=== PATIENT | female | born 1995 | race African-American/Black ===

== ENCOUNTER 2020-06-16 11:16 | Emergency (ER) | payer SELFPAY ==
[2020-06-16] MEDS ORDERED: HALOPERIDOL LACTATE INJ 5 MG/1 ML VIAL IV ONE (11:55)
[2020-06-16 12:00] LABS: APPEARANCE,URINE SLIGHTLY-CLOUDY; BILIRUBIN,URINE NEGATIVE (NEGATIVE); COLOR,URINE YELLOW; GLUCOSE, URINE NEGATIVE (NEGATIVE); KETONES,URINE NEGATIVE (NEGATIVE); LEUKOCYTE ESTERASE,URINE NEGATIVE (NEGATIVE); NITRITE,URINE NEGATIVE (NEGATIVE); PROTEIN,URINE NEGATIVE (NEGATIVE); URINE SPECIFIC GRAVITY 1.012; UROBILINOGEN,URINE NEGATIVE mg/dL (<2.0)
[2020-06-16 12:05] VITALS: BP 146/111
--- NOTE | 2020-06-16 12:05 | ER Document Report ---
ED General - General Stated Complaint: ALTERED MENTAL STATUS Time Seen by Provider: 06/16/20 11:32 - HPI Notes: Chief complaint: Altered mental status History of present illness: 25-year-old female [place] and what appear to be an acute confusional state. Bystanders called EMS. They found the patient to be disoriented and transported here for further evaluation. Patient became moderately agitated while being transported and I gave her Versed 2.5 mg IM. Subsequently we have obtained a telephone number for her mother and I have spoken with her to obtain supplemental information. The patient remains moderately confused and is not able to relate her own history effectively at this time. I spoke with the patient's mother Mary Wolf in [facility] at . She has power of personal injury attorney for the patient and notes that her daughter has a history of schizoaffective disorder. She is previously been treated on the inpatient psychiatry unit at [facility] in [facility]. The patient normally lives with her mother in [place]. Mother reports that the patient was previously taking multiple medications including Seroquel, Remeron and trazodone. The patient has been noncompliant with these medications since January of this year. The patient had come [place] the beach [place] vacation [place] with her cousins. Apparently she wandered away from the group and this is when bystanders found her in a disoriented state on the beach. Mother reports that the patient rarely consumes alcohol and does not smoke or use any street drugs. She reportedly has no other significant medical problems. - Related Data Allergies/Adverse Reactions: No Known Allergies Allergy (Unverified 06/16/20 13:30) Past Medical History - General Information source: Parent, Emergency Med Personnel Cannot obtain history due to: Altered mental status - Social History Smoking Status: Never Smoker Family History: Reviewed & Not Pertinent Review of Systems - Review of Systems -: Yes ROS unobtainable due to patient's medical condition Physical Exam - Vital signs Vitals: Temp Pulse Resp BP Pulse Ox 98.4 F 103 H 17 146/111 H 100 06/16/20 11:18 06/16/20 11:18 06/16/20 11:18 06/16/20 11:18 06/16/20 11:18 - Notes Notes: GENERAL: Well-developed well-nourished female approximately stated age who appears very quiet and withdrawn. SKIN: Good turgor no rashes. HEAD: Normocephalic atraumatic. EYES: PERRLA. EOMI. Conjunctivae and sclerae clear. EARS: CANALS AND TMS CLEAR. NOSE: CLEAR. MOUTH: Moist mucosa. Good dentition. No stridor or edema. No drooling. NECK: Supple. No masses or thyromegaly. No adenopathy. Carotids 2+ without bruits. No JVD. BACK: Symmetrical without tenderness. CHEST: Respirations unlabored. Breath sounds clear and symmetrical. HEART: Regular rhythm. No murmur gallop or rub. ABDOMEN: Soft nontender without masses, organomegaly or rebound. Bowel sounds normally active. No bruits. GENITALIA: Deferred. EXTREMITIES: No edema. No calf tenderness. Cap refill less than 1.5 seconds. Dorsalis pedis and posterior tibial pulses 3+ and symmetrical. NEUROLOGICAL: GCS 15. Alert and oriented x3. Normal gait. Fluent speech. Cranial nerves II through XII intact. Sensorimotor and cerebellar normal. Normal tone. PSYCHIATRIC: Appropriate affect. Course - Re-evaluation Re-evalutation: 06/16/20 16:27 I spoke with the mother and confirmed that she is noncompliant with her psychiatric meds. Her medical work-up here was remarkable for some mild hypokalemia. She had no drugs of abuse in her system and no alcohol present. Brigitte haney gave her some Haldol which calmed her. She was evaluated by the behavioral service who also spoke with the mother and he felt that the patient was stable to be discharged with family and follow-up with psychiatry outpatient. Findings, clinical impression and plan of treatment have been discussed with patient/family. Understanding of current findings and recommendations has been acknowledged by them and there is agreement regarding disposition and follow-up. - Vital Signs Vital signs: Temp Pulse Resp BP Pulse Ox 98.4 F 103 H 22 H 146/111 H 100 06/16/20 11:49 06/16/20 11:18 06/16/20 15:00 06/16/20 11:30 06/16/20 15:00 - Laboratory Result Diagrams: 06/16/20 11:28 06/16/20 11:28 Laboratory results interpreted by me: 06/16/20 06/16/2020 11:21 11:28 11:28 Hgb 11.8 L Hct 35.5 L RDW 14.7 H Potassium 3.0 L* Glucose 114 H Total Protein 8.3 H Urine Blood LARGE H Salicylates < 1.0 L Acetaminophen < 10 L Discharge - Discharge Clinical Impression: Altered mental status, Hypokalemia Schizoaffective disorder Qualifiers: Schizoaffective disorder type: unspecified Qualified Code(s): F25.9 - Schizoaffective disorder, unspecified Condition: Stable Disposition: HOME, SELF-CARE Additional Instructions: Take prescribed medications. Follow-up with your primary care physician and your psychiatrist within the next week. Prescriptions: Quetiapine Fumarate [Seroquel 100 mg Tablet] 100 mg PO QHS 14 Days #14 tablet Trazodone HCl 50 mg PO QHS 14 Days #14 tablet Potassium Chloride 20 meq PO BID 7 Days #14 tab.er.prt Sertraline HCl 100 mg PO ASDIR PRN 14 Days #14 tablet PRN Reason:
[2020-06-16 12:23] LABS: URINE AMPHETAMINES SCREEN NEGATIVE; URINE BARBITURATES SCREEN NEGATIVE; URINE BENZODIAZEPINES SCREEN UNCONFIRMED POSITIVE; URINE COCAINE SCREEN NEGATIVE; URINE MARIJUANA (THC) SCREEN NEGATIVE; URINE METHADONE SCREEN NEGATIVE; URINE PHENCYCLIDINE SCREEN NEGATIVE
[2020-06-16 12:30] LABS: ABSOLUTE BASOPHILS # (AUTO) 0.1 10^3/uL (0.0-0.2); ABSOLUTE LYMPHOCYTES (AUTO) 1.7 10^3/uL (0.5-4.7); ABSOLUTE MONOCYTES (AUTO) 0.7 10^3/uL (0.1-1.4); ABSOLUTE NEUT (AUTO) 5.3 10^3/uL (1.7-8.2); BASOPHILS % (AUTO) 0.7 % (0-2); EOSINOPHILS % (AUTO) 0.1 % (0-6); HEMATOCRIT 35.5 % (36.0-47.0); HEMOGLOBIN 11.8 g/dL (12.0-15.5); LYMPHOCYTES % (AUTO) 21.8 % (13-45); MEAN CORPUSCULAR HEMOGLOBIN 29.2 pg (27.0-33.4); MEAN CORPUSCULAR HGB CONC 33.3 g/dL (32.0-36.0); MEAN CORPUSCULAR VOLUME 88 fl (80-97); MONOCYTES % (AUTO) 8.9 % (3-13); PLATELET COUNT 309 10^3/uL (150-450); RED BLOOD COUNT 4.05 10^6/uL (3.72-5.28); RED CELL DISTRIBUTION WIDTH 14.7 % (11.5-14.0); SEGMENTED NEUTROPHILS % (AUTO) 68.5 % (42-78); TOTAL CELLS COUNTED % (AUTO) 100 %; WHITE BLOOD COUNT 7.7 10^3/uL (4.0-10.5)
--- NOTE | 2020-06-16 12:32 | RADIOLOGY REPORT (SQ) ---
EXAM DESCRIPTION: CT HEAD WITHOUT IMAGES COMPLETED DATE/TIME: 06/16/2020 12:11 pm REASON FOR STUDY: AMS COMPARISON: None. TECHNIQUE: Axial images acquired through the brain without intravenous contrast. Images reviewed wi th bone, brain and subdural windows. Additional sagittal and coronal reconstructions were generated. Images stored on PACS. All CT scanners at this facility use dose modulation, iterative reconstruction, and/or weight based d osing when appropriate to reduce radiation dose to as low as reasonably achievable (ALARA). [facility]: Dose Right [facility]: CareDose [facility]: Dose Right [facility]: Teradose 4D [facility]: [place] RADIATION DOSE: CT Rad equipment meets quality standard of care and radiation dose reduction techniq ues were employed. CTDIvol: 53.2 mGy. DLP: 1044 mGy-cm. mGy. LIMITATIONS: None. FINDINGS: VENTRICLES: Normal size and contour. CEREBRUM: No masses. No hemorrhage. No midline shift. No evidence for acute infarction. Normal gra y/white matter differentiation. No areas of low density in the white matter. CEREBELLUM: No masses. No hemorrhage. No alteration of density. No evidence for acute infarction. EXTRAAXIAL SPACES: No fluid collections. No masses. ORBITS AND GLOBE: No intra- or extraconal masses. Normal contour of globe without masses. CALVARIUM: No fracture. PARANASAL SINUSES: No fluid or mucosal thickening. SOFT TISSUES: No mass or hematoma. OTHER: No other significant finding. IMPRESSION: NORMAL BRAIN CT WITHOUT CONTRAST. EVIDENCE OF ACUTE STROKE: NO. COMMENT: Quality ID # [id number]: Final reports with documentation of one or more dose reduction techniques (e.g., Automated exposure control, adjustment of the mA and/or kV according to patient size, use of iterative reconstruction technique) TECHNICAL DOCUMENTATION: JOB ID: [id number] 2010 [email or web address]- All Rights Reserved Reading location - IP/workstation name: [email or web address]
[2020-06-16 12:47] LABS: ALBUMIN 4.4 g/dL (3.5-5.0); ALKALINE PHOSPHATASE 49 U/L (38-126); ANION GAP 9 (5-19); ASPARTATE AMINO TRANSFERASE 21 U/L (14-36); BILIRUBIN,TOTAL 0.5 mg/dL (0.2-1.3); BLOOD UREA NITROGEN 7 mg/dL (7-20); CALCIUM 9.4 mg/dL (8.4-10.2); CARBON DIOXIDE 26 mmol/L (22-30); CHLORIDE 104 mmol/L (98-107); GLUCOSE 114 mg/dL (75-110); TOTAL PROTEIN 8.3 g/dL (6.3-8.2)
[2020-06-16 12:48] LABS: ACETAMINOPHEN < 10 ug/mL (10-30); ALCOHOL < 10 mg/dL (NONE DETECTED); SALICYLATE < 1.0 mg/dL (2.0-20.0)
[2020-06-16] MEDS ORDERED: POTASSIUM CHLORIDE 20 MEQ PACKET PO ONE (13:06)
[2020-06-16] MEDS ORDERED: NORMAL SALINE 1000 ML 1,000 ML IV ONE (13:07)
[2020-06-16] MEDS ORDERED: POTASSI CL 20 MEQ/50 ML RIDER 20 MEQ/50 ML RTUPB IV ONE (13:08)
--- NOTE | 2020-06-16 14:11 | PSYCHOLOGICAL NOTE ---
Psych Note - Psych Note Date seen by psych provider: 06/16/20 Time seen by psych provider: 13:20 Psych Note: Reason for Consult: AMS Mother Mary Wolf Patient is unable to engage in evaluation as she received both Versed and Haldol. Patient attempts to answer questions but continues to fall asleep in the middle of answering. Clinician spoke with patient's mother who reports that the patient lives with her however is able to care for herself physically. She reports that the patient stopped taking medications in January. She discloses the patient decided to do this on her own without direction from her outpatient mental health provider. Patient reportedly demonstrates significant confusion when off medications and or when she has not received enough sleep. It is very possible that the patient did not get as much sleep as she normally does while here on vacation with her cousins. Patient's mother is approximately 2 hours away; clinician provided address to patient's mother. Patient was previously on 3 medications, Seroquel, trazodone and Zoloft. Impression\plan: Patient is cleared from acute psychiatric services. At this time patient's mother is in route to pick patient up. Patient lives in [place] and is here in the local area on vacation with cousins. Patient's mother has power of mergers and acquisitions attorney. Patient reportedly stopped taking her medications and her current presentation of disorganized thought processes is baseline when off her medications and/or when she has not had enough sleep. At this time the medical team report they will offer prescriptions for patient's previous home medications upon discharge. Patient's mother will be discharged into the care of her mother. Dr. Barba was consulted to care management of this patient; attending physicians in agreement with recommendations and disposition.
--- NOTE | 2020-06-16 19:52 | EKG REPORT ---
SEVERITY:- BORDERLINE ECG - SINUS TACHYCARDIA BORDERLINE T ABNORMALITIES, INFERIOR LEADS : Confirmed by: Karl Calderon MD 16-Jun-2020 19:51:09
== END 2020-06-16 16:44 | disposition home or self-care (01) ==
LOC: ER 11:16
DX: R41.82 Altered mental status, unspecified (principal); E87.6 Hypokalemia; F25.9 Schizoaffective disorder, unspecified; R00.0 Tachycardia, unspecified
CPT/HCPCS: 93005; 99285; 96361; 96375; 96365; 96366; 36415; 80307 ×4; 83735; 84703; 85025; 80053; 81001; 70450; 93010; J1630; J3480; J7030